=== PATIENT | female | born 1950 | race Caucasian/White ===

== ENCOUNTER 2018-03-04 06:37 | Day surgery (SDC) | payer MEDICARE, BC ==
[2018-03-04] MEDS ORDERED: Sodium Chloride 0.9% 10 ML Syringe FLUSH PRN (06:45)
[2018-03-04] MEDS ORDERED: Lactated Ringers 1,000 ML IV SCH (06:45)
--- NOTE | 2018-03-04 08:13 | PCM.HPR ---
H & P Addendum review - H & P Addendum Review Date of Original H & P: 02/25/18 Date Reviewed: 03/04/18 Time Reviewed: 08:00 Patient was Examined: No Changes
--- NOTE | 2018-03-04 09:28 | OR ---
DATE OF OPERATION: 03/04/2018 SURGEON: Yevgeniy Esteban MD PREOPERATIVE DIAGNOSIS: Family history of colon polyps. POSTOPERATIVE DIAGNOSIS: Normal colonoscopy. PROCEDURE: Colonoscopy. ANESTHESIA: IV sedation. DESCRIPTION OF PROCEDURE: The patient was brought to the procedure room, where she was placed on her left side and IV sedation was administered. Digital rectal exam was performed, which was normal. The colonoscope was inserted and advanced to the level of the cecum without difficulty. Cecal position was confirmed by identifying the appendiceal lumen and ileocecal valve. Prep was good and surfaces were well visualized. Upon withdrawing the scope, the ascending, transverse and descending colons were normal in appearance. Sigmoid colon and rectum were normal. Retroflexion was normal. Air was removed and the scope withdrawn. The patient tolerated the procedure well and returned to Recovery in a stable condition. Recommend routine colon screening again in five years. /[id number]/[id number]
== END 2018-03-04 09:50 | disposition home or self-care (01) ==
LOC: FB.SDS 06:37
PROVIDERS: ATTEND Surgery
DX: Z12.11 Encounter for screening for malignant neoplasm of colon (principal); E78.5 Hyperlipidemia, unspecified; G47.00 Insomnia, unspecified; Z79.899 Other long term (current) drug therapy; Z88.8 Allergy status to other drugs, medicaments and biological substances; Z83.71 Family history of colonic polyps
CPT/HCPCS: 00812-QZ; J7120

== ENCOUNTER 2024-03-08 09:39 | Emergency (ER) | payer BC, MEDICARE, OTHER ==
[2024-03-08 10:11] LABS: EOSINOPHILS ABSOLUTE AUTO 0.1 x10-3/uL (0.0-0.8); HEMATOCRIT 38.3 % (34.2-48.2); HEMOGLOBIN 12.6 g/dL (11.4-15.5); LYMPHOCYTES ABSOLUTE AUTO 1.4 x10-3/uL (1.0-4.4); LYMPHOCYTES PERCENT AUTO 30.4 % (18.4-52.1); MEAN CORPUSCULAR HEMOGLOBIN 29.2 pg (23.9-33.9); MEAN CORPUSCULAR HGB CONC 32.9 g/dL (31.9-34.8); MEAN CORPUSCULAR VOLUME 88.6 fL (76.7-100.5); MEAN PLATELET VOLUME 7.5 fL (7.1-12.4); MONOCYTES ABSOLUTE AUTO 0.3 x10-3/uL (0.3-1.0); MONOCYTES PERCENT AUTO 7.4 % (4.4-15.7); NEUTROPHILS ABSOLUTE AUTO 2.7 x10-3/uL (1.5-6.3); NEUTROPHILS PERCENT AUTO 58.2 % (30.8-76.2); PLATELET COUNT,PLT 169 x10(3)uL (151-488); RED BLOOD CELL COUNT 4.32 x10(6)uL (3.60-5.20); RED CELL DISTRIBUTION WIDTH 13.9 % (12.3-16.5); WHITE BLOOD CELL COUNT,WBC 4.7 x10-3/uL (3.0-10.3)
[2024-03-08 10:13] LABS: BLOOD UREA NITROGEN,BUN 23 mg/dL (7-18); BUN/CREATININE RATIO 17.7 (9-20); CALCIUM 9.5 mg/dL (8.6-10.2); CARBON DIOXIDE,CO2 29 mmol/L (21-32); CHLORIDE,CL 105 mmol/L (100-110); CREATININE 1.3 mg/dL (0.55-1.02); ESTIMATED GFR 44 mL/min (>60); GLUCOSE RANDOM 101 mg/dL (80-116); SODIUM,NA 141 mmol/L (135-145)
[2024-03-08 10:19] LABS: A/G RATIO 1.1; ALANINE AMINOTRANSFERASE,ALT 19 U/L (12-36); ALBUMIN 3.8 g/dL (3.2-4.6); ALKALINE PHOSPHATASE 67 IU/L (56-112); ASPARTATE AMNIOTRANSFERASE,AST 15 IU/L (5-25); BILIRUBIN TOTAL 0.3 mg/dL (0.1-1.3); PROTEIN TOTAL,TP 7.3 g/dL (6.0-8.0)
[2024-03-08 10:22] LABS: TROPONIN I 4.5 pg/mL (4.0-60.3)
[2024-03-08 10:23] LABS: ETHANOL BLOOD MEDICAL < 0.03 % (<0.03)
[2024-03-08 10:24] LABS: INR 0.95 (1.00-1.24); PROTHROMBIN TIME 9.9 sec (9.0-11.1); PTT,PARTIAL THROMBOPLSTIN TIME 27.2 SECONDS (24.4-33.2)
[2024-03-08] MEDS ORDERED: Sodium Chloride 0.9% 10 ML Syringe FLUSH PRN (11:01)
[2024-03-08] MEDS: Calcium Gluconate 10% 1 GM/10 ML SDV IVPUSH ONE (11:21)
[2024-03-08] MEDS: Sodium Chloride 0.9% 1,000 ML IV SCH (11:21)
[2024-03-08] MEDS: 50% Dextrose in Water 50 ML Syringe IVPUSH ONE (11:28)
[2024-03-08] MEDS: Insulin Regular, Human 100 Units/ML 10 ML Vial SUBCUT STA (11:32)
[2024-03-08] MEDS: Sodium Bicarbonate 8.4% 50 MEQ/50 ML Syringe IVPUSH ONE (11:36)
[2024-03-08 12:48] LABS: BLOOD UREA NITROGEN,BUN 20 mg/dL (7-18); BUN/CREATININE RATIO 16.7 (9-20); CARBON DIOXIDE,CO2 30 mmol/L (21-32); CHLORIDE,CL 106 mmol/L (100-110); CREATININE 1.2 mg/dL (0.55-1.02); EST CRCL DRUG DOSING (CG) 30.89 mL/min; ESTIMATED GFR 48 mL/min (>60); GLUCOSE RANDOM 163 mg/dL (80-116); POTASSIUM,K 5.3 mmol/L (3.5-5.3); SODIUM,NA 142 mmol/L (135-145)
== END 2024-03-08 12:50 | disposition home or self-care (01) ==
LOC: FB.ED 09:39
DX: E87.5 Hyperkalemia (principal); E86.0 Dehydration; N18.9 Chronic kidney disease, unspecified; E78.00 Pure hypercholesterolemia, unspecified; Z79.899 Other long term (current) drug therapy; Z90.710 Acquired absence of both cervix and uterus
CPT/HCPCS: 36415; 70450; 71045; 80048; 80053; 80307; 84484; 85025; 85610; 85730; 93005; 96361; 96374; 96375; 99284-25; A9270-GY; J0612; J7030